=== PATIENT | male | born 1990 | race Caucasian/White ===

== ENCOUNTER 2017-06-10 21:16 | Emergency (ER) | payer SELFPAY ==
[2017-06-11] MEDS ORDERED: DICL50TA3 PO ×2 (00:06→00:45)
[2017-06-11] MEDS ORDERED: AMOX500C PO ×2 (00:06→00:45)
== END 2017-06-10 22:20 | disposition left against medical advice (07) ==
LOC: NED 21:16
DX: K08.89 Other specified disorders of teeth and supporting structures (principal); Z53.21 Procedure and treatment not carried out due to patient leaving prior to being seen by health care provider
CPT/HCPCS: 99281

== ENCOUNTER 2017-06-10 22:44 | Emergency (ER) | payer BC ==
[~2017-06-10] VITALS: Ht 188 cm; Wt 85.0 kg
[2017-06-10 23:40] VITALS: BP 162/87; PULSE 64; RESP 16; TEMP 98.3; O2SAT 99
--- NOTE | 2017-06-11 00:02 | PD ---
HPI Chief Complaint: Oral / Dental Pain or Problem Time Seen by Provider: 23:55 Travel History International Travel<30 days: No Contact w/Intl Traveler<30days: No Traveled to known affect area: No History of Present Illness HPI 26-year-old white male presents to emergency Department with complaints of left lower dental pain for the past month. He states it is been worse for the past 1 week. He alleges that he has an appointment to see a dentist next week. He denies any fever or chills. No ear pain, sore throat, cough or congestion. He states the pain radiates into his neck and into his chest. There is no alleviating or exacerbating activities. History Past Medical Histgory Medical History: Denies Significant Hx Tetanus Vaccination: < 5 Years Past Surgical History Surgical History: No Previous Surgery Social History Alcohol Use: No Tobacco Use: No Allergies-Medications (Allergen,Severity, Reaction): Coded Allergies: No Known Allergies (Unverified , 06/10/17) Reported Meds & Prescriptions Reported Meds & Active Scripts Active Diclofenac Sodium DR (Diclofenac Sodium) 50 Mg Tabdr 50 Mg PO TID 10 Days Amoxicillin 500 Mg Cap 500 Mg PO TID 10 Days Review of Systems General / Constitutional: No: Fever Eyes: No: Visual changes HENT: Positive: Neck Pain, Dental Difficulties, No: Headaches, Sore Throat, Ear Discharge, Earache Cardiovascular: No: Chest Pain or Discomfort Respiratory: No: Cough, Shortness of Breath Gastrointestinal: No: Abdominal Pain Genitourinary: No: Dysuria Musculoskeletal: No: Pain Skin: No Rash Neurologic: No: Weakness Psychiatric: No: Depression Endocrine: No: Polydipsia Hematologic/Lymphatic: No: Easy Bruising Physical Exam Narrative GENERAL: This is a well-nourished, well-developed patient, in no apparent distress. SKIN: No rashes, ecchymoses or lesions. Warm and dry. HEAD: Atraumatic. Normocephalic. EYES: PERRL, EOMI, no discharge or injection. No scleral icterus. EARS: Clear NOSE: Nasal turbinates appear normal. THROAT: Mucosa pink and moist. Airway patent. The patient has large dental carry in tooth #17. There is gingival erythema and edema. NECK: Trachea midline. supple, moves head freely. LUNGS: Clear to auscultation. CV: Regular in rhythm. ABDOMEN: Soft nontender. EXT: No clubbing cyanosis or edema. Data Data Last Documented VS Vital Signs Date Time Temp Pulse Resp B/P (MAP) Pulse Ox O2 Delivery O2 Flow Rate FiO2 06/10/17 23:40 98.3 64 16 162/87 (112) 99 Orders Orders Amoxicillin (Trimox) (06/11/17 00:15) Acetamin-Hydrocod 325-5 Mg (Grawn 5-325 (06/11/17 00:15) MDM Medical Screen Exam Complete: Yes Emergency Medical Condition: No Differential Diagnosis MDM: Moderate Differential diagnoses: Dental abscess, dental caries, osteitis, cellulitis Narrative Course A medical screening exam was performed: At the time of evaluation the presenting medical condition was determined not to be of an emergent nature. The patient was given the option of receiving additional care, but declined. Patient was given options for additional community resources from which to obtain care. The Patient Has Been advised to seek medical attention for their presenting complaint. The patient has been advised to return to the ER at any time if an emergent condition develops. The patient is opted to stay. The patient is given amoxicillin 875 mg by mouth and one nor code 5 mg by mouth. This is dental caries, dentalgia Primary Impression: dental caries Additional Impression: dentalgia Patient Instructions: Narcotic given in the ED, General Instructions Additional Instructions: Rest. Saltwater gargles. [employer] oil on cotton balls. Amoxicillin and diclofenac follow-up with a dentist as soon as possible. And return to the ER if any problems. Med/Other Pt SpecificInfo: Prescription(s) given Scripts Diclofenac Sodium DR (Diclofenac Sodium DR) 50 Mg Tabdr 50 MG PO TID for 10 Days, TAB 0 Refills Prov: Royer Keen MD 06/11/17 Amoxicillin (Amoxicillin) 500 Mg Cap 500 MG PO TID for Infection for 10 Days, CAP 0 Refills Prov: Royer Keen MD 06/11/17 Disposition: 01 DISCHARGE HOME Condition: Stable Guillermo Jones Jun 11, 2017 00:02
[2017-06-11] MEDS ORDERED: AMOX500C PO ×2 (00:06→00:45)
[2017-06-11] MEDS ORDERED: DICL50TA3 PO ×2 (00:06→00:45)
[2017-06-11] MEDS ORDERED: AMOXICILLIN 875 MG TAB PO ONE (00:15)
[2017-06-11] MEDS ORDERED: ACETAMINOPHEN/HYDROcodone 325 MG/5 MG TAB PO ONE (00:15)
== END 2017-06-11 00:56 | disposition home or self-care (01) ==
LOC: NEPK 22:44
DX: K02.9 Dental caries, unspecified (principal)
CPT/HCPCS: 99283